=== PATIENT | male | born 1995 | race Caucasian/White ===

== ENCOUNTER 2024-01-11 21:18 | Outpatient (REF) | payer BC, SELFPAY ==
--- OUTSIDE RECORDS SUMMARY | 2024-01-11 21:21 | XMS_ITS | Encounter Summary ---
Author Organization [facility] Address [address] [place] [address] Care Team Providers Care Utilities Operator Name Role Phone None, Provider Primary Care Provider Unavailabl e Reason for Visit * Reason Comments Exposure to STI pt diagnosed 6 month s ago with chlamydia and was treated went away girl friend was diagnosed yesterday with chlamydia and pt would like testing and possible medication to treat Encounter Details Date Type Department Care Team (Late st Contact Info) Description 06/15/2019 9:00 EST Walk-In [address] [phone] Yoana Ndiaye, CAR DEALER [address] [place] [address] [address] [place], [place] [phone] Exposure to chlamydia (Primary Dx) Social History Tobacco Use Types Packs/Day Years Used Date Smoking Tobacco: Never Assessed Sex and Gender Information Value Date Recorded Sex Assigned at Not on file Gender Identity Male 06/15/2019 9:46 EST Sexual Orientation Not on file documented as of this encounter Last Filed Vital Signs Vital Sign Reading Time Taken Comments Blood Pressure 130/86 06/15/2019 0918 EST Pulse 93 06/15/2019 0918 EST Temperature 36.9 ??C (98.5 ??F) 06/15/2019 0918 EST Respiratory Rate 16 06/15/2019 0918 EST Oxygen Saturation 97% 06/15/2019 0918 EST Inhaled Oxygen Concentration - - Weight - - Height - - Body Mass Index - - documented in this encounter Patient Instructions * Patient Instructions* Yoana Ndiaye, IMPROVEMENT ENGINEER - 06/15/2019 9:00 EST Images from the original note were not included. You were treated in clinic today with 1000 mg of azithromycin, an antibiotic to treat chlamydia. Ifthe tests for gonorrhea or trich come back positive we will call you about further treatment. Ensure that your girlfriend and any other partners are notified and treated. Avoid all sexual contact for 2 weeks. Use condoms to avoid future infections. [facility] Patient Instructions Chlamydia: Care Instructions Your Care Instructions Chlamydia is a bacterial infection spread through sexual contact. It is one of the most common sexually transmitted infections (STIs). Most people who get chlamydia do not have symptoms, but they canstill infect their sex partners. If chlamydia in women is not treated, it can cause pelvic inflammatory disease (PID), a severe pelvic infection. PID can make it hard for a woman to get . Antibiotics can cure chlamydia. Both sex partners need treatment to keep from passing the infectionback and forth. Certain antibiotics should not be used in . If you were not tested for during this visit, tell your doctor if you might be . Follow-up care is a hoffman part of your treatment and safety. Be sure to make and go to all appointments, and call your doctor if you are having problems. It's also a good idea to know your test resultsand keep a list of the medicines you take. How can you care for yourself at home? ?? Chlamydia often is treated with a single dose of antibiotics in the doctor's office. If your doctor prescribed antibiotics to take at home, take them as directed. Do not stop taking them just because you feel better. You need to take the full course of antibiotics. ?? Do not have sex with anyone while you are being treated. If your treatment is a single dose of antibiotics, wait at least 7 days after you take the dose before you have sex. Even if you use a condom, you and your partner may pass the infection back and forth. ?? Make sure to tell your sex partner or partners that you have chlamydia. They should get treated,even if they do not have symptoms. ?? Your doctor may have done tests for other STIs. If so, call back in 3 or 4 days for those results. ?? Your doctor may advise you to be tested again for chlamydia in 3 or 4 months. How can you prevent chlamydia and other STIs in the future? ?? Use latex condoms every time you have sex. Use them from the beginning to the end of sexual contact. ?? Talk to your partner before you have sex. Find out if he or she has or is at risk for chlamydia or any other STI. Keep in mind that a person may be able to spread an STI even if he or she does nothave symptoms. ?? Do not have sex while you are being treated for chlamydia or any other STI. ?? Do not have sex with anyone who has symptoms of an STI, such as sores on the genitals or mouth. ?? Having one sex partner (who does not have STIs and does not have sex with anyone else) is a goodway to avoid STIs. When should you call for help? Call 911 anytime you think you may need emergency care. For example, call if: ? You have sudden, severe pain in your belly or pelvis. ??Call your doctor now or seek immediate medical care if: ? You have new belly or pelvic pain. ? You have a fever. ? You have new or increased burning or pain with urination, or you cannot urinate. ? You have pain, swelling, or tenderness in the scrotum. ??Watch closely for changes in your health, and be sure to contact your doctor if: ? You have unusual vaginal bleeding. ? You have a discharge from the vagina or penis. ? You think you may have been exposed to another STI. ? Your symptoms get worse or have not improved within 1 week after starting treatment. ? You have any new symptoms, such as sores, bumps, rashes, blisters, or warts in the genital oranal area. Where can you learn more? Go to https://www.[email or web address].net/VantageILMealth or log into your [employer] account at [email or web address] Enter X780 in the search box to learn more about Chlamydia: Care Instructions. Current as of: March 08, 2018 Content Version: 12.2 ?? [id number] [employer]. Care instructions adapted under license by [employer]. If you have questions about a medical condition or this instruction, always askyour healthcare professional. [employer] disclaims any warranty or liability for youruse of this information. documented in this encounter Progress Notes * DiannfedericoYoana, IMPROVEMENT ENGINEER - 06/15/2019 0900 EST [facility] Chief Complaint(s): Exposure to STI HPI: Chris Morales is here with complaints of exposure to chlamydia. Girlfriend was diagnosed yesterday after routine screening. Chris denies symptoms. States that both he and his girlfriend had tested positive for chlamydia 6 months ago - denies any other sexual partners for himself since then, denies knowledge of any sexual partners for his girlfriend since that time. States that they were both treated appropriately 6 months ago. States that he was tested also for gonorrhea 6 months ago and was negative. I have reviewed current problem list, current medications and allergies. ROS: Review of Systems Constitutional: Negative. Genitourinary: Negative. Skin: Negative. See HPI for details Objective: Examination: Vitals: BP 130/86 Pulse 93 Temp 36.9 ??C (98.5 ??F) Resp 16 SpO2 97% Physical Exam Constitutional: He is oriented to person, place, and time. He appears well- developed and well-nourished. HENT: Head: Normocephalic. Neurological: He is alert and oriented to person, place, and time. Skin: Skin is warm and dry. Psychiatric: He has a normal mood and affect. Nursing note and vitals reviewed. Procedures Data reviewed with patient (past results): reviewed STI testing results from 10/14 Assessment & Plan: Chris was seen today for exposure to sti. Diagnoses and all orders for this visit: Exposure to chlamydia - CHLAMYDIA/N. GONORRHOEAE AMPLIFIED RNA - azithromycin (ZITHROMAX) tablet 1,000 mg This is a 23 y.o. yr old male afeb, NAD. Treated in clinic with azithromycin for presumptive chlamydia. Pt agrees to return for further treatment if needed for any other positive tests. Declines testing for HIV or other blood borne STIs today. I printed material and reviewed home management in detail with patient for likely chlamydia, see patient instructions below. All questions are answered. Patient is advised to follow up for urgent reassessment in the emergency department for any new/worsening signs and symptoms, otherwise, follow up with PCP for symptoms that persist past current course of treatment. Patient verbalizes understanding and agreement with this plan of care. documented in this encounter Plan of Treatment Scheduled Orders Name Type Priority Associated Diagnoses Orde r Schedule CHLAMYDIA/N. GONORRHOEAE AMPLIFIED RNA Microbiology Routine Exposure to chlamydia Ordered: 06/15/2019 documented as of this encounter Visit Diagnoses Diagnosis Exposure to chlamydia- Primary Contact with or exposure to venereal diseases documented in this encounter Administered Medications Inactive Administered Medications - up to 3 most recent administrations Medication Order MAR Action Action Date Dose Rate Site azithromycin (ZITHROMAX) tablet 1,000 mg 1,000 mg, oral, NOW X1, 1 dose, On Luh 06/15/19 at 1000, Routine Given 06/15/2019 9:39 EST 1,000 mg documented in this encounter Historical Medications * This list may reflect changes made after this encounter. Medication Sig Dispensed Refills Start Date End Date dextromethorphan HBr (VICKS DAYQUIL COUGH ORAL) Take by mouth. added in this encounter Care Teams Utilities Operator Relationship Specialty Start Date End Date None, Provider PCP - General 06/15/19 documented as of this encounter
--- OUTSIDE RECORDS SUMMARY | 2024-01-11 21:21 | XMS_ITS | Encounter Summary ---
Author Organization [facility] Address [address] [place] [address] Care Team Providers Care Green House Manager Name Role Phone Unavailable Primary Care Provider Unavailabl e Encounter Details Date Type Department Care Team (Late st Contact Info) Description 09/29/2018 Historical Results Only [facility] - Main [place] [address] [place], [place] [phone] Carli Nazario NP [address] [place], [place] [phone] Social History Tobacco Use Types Packs/Day Years Used Date Smoking Tobacco: Never Assessed Sex and Gender Information Value Date Recorded Sex Assigned at Not on file Gender Identity Male 06/15/2019 9:46 EST Sexual Orientation Not on file documented as of this encounter Plan of Treatment Not on file documented as of this encounter Procedures Procedure Name Priority Date/Time Associated Diagnosis Comments GC/CHLAMYDIA/TRICHO MONAS URINE - [facility] Routine 09/29/2018 18:11 EDT documented in this encounter Results * GC/CHLAMYDIA/TRICHOMONAS URINE - [facility] (09/29/2018 18:11 EDT) CHLAMYDIA PCR - [facility] DETECTED 09/30/2018 14:04 EDT [facility] Comment: CHLAMYDIA TRACHOMATIS DNA detected by nucleic acid amplification with real-time PCR. Result called to CASTILLO HERNANDEZ AT [facility] 09/30/18 1404: Result called by EDGARDO GONORRHEA PCR - [facility] NOT DETECTED 09/30/2018 14:04 EDT [facility] TRICH[facility]ONAS VAGINALIS PCR UR - [facility] NOT DETECTED 09/30/2018 13:09 EDT [facility] 09/29/2018 18:1 1 EDT 09/30/2018 11:44 EDT Carli Nazario REROLLING MACHINE OPERATOR CHEMISTRY & BLOOD GAS ORDERABLES [facility] documented in this encounter Visit Diagnoses Not on filedocumented in this encounter
--- OUTSIDE RECORDS SUMMARY | 2024-01-11 21:21 | XMS_ITS | Referral Summary ---
Author Organization [facility] Address [address] [place] [address] Care Team Providers Care Erp Pm Name Role Phone None, Provider Primary Care Provider Unavailabl e Allergies No known active allergies Medications Medication Sig Dispensed Refills Start Date End Date Status dextromethorphan HBr (VICKS DAYQUIL COUGH ORAL) Take by mouth. Active Social History Tobacco Use Types Packs/Day Years Used Date Smoking Tobacco: Never Assessed Interpersonal Safety Answer Date Record ed Physically Hurt Never 01/28/2020 Verbally Threaten Not on file 01/28/2020 Sex and Gender Information Value Date Recorded Sex Assigned at Not on file Gender Identity Male 06/15/2019 9:46 EST Sexual Orientation Not on file Last Filed Vital Signs Vital Sign Reading Time Taken Comments Blood Pressure 130/86 06/15/2019 0918 EST Pulse 93 06/15/2019 0918 EST Temperature 36.9 ??C (98.5 ??F) 06/15/2019 0918 EST Respiratory Rate 16 06/15/2019 0918 EST Oxygen Saturation 97% 06/15/2019 0918 EST Inhaled Oxygen Concentration - - Weight - - Height - - Body Mass Index - - Plan [place] [address] Chris Morales Personal/Famil y Self [address] [place] [address] [place] [address] Chris Morales Personal/Famil y Self [address] [place] [address] [place] [address] Carm[place], Chris Personal/Famil y Self [address] [place] [address] [place] [address] Carmen, Chris Personal/Famil y Self [address] [place] [address] [place] [address] Carmen, Chris Personal/Famil y Self [address] [place] [address] [place] [address] [place], Chris Personal/Famil y Self [address] [place] [address] [place] [address] Carm[place], Chris Personal/Famil y Self [address] [place] [address] [place] [address] Care Teams Erp Pm Relationship Specialty Start Date End Date None, Provider PCP - General 06/15/19
--- OUTSIDE RECORDS SUMMARY | 2024-01-11 21:21 | XMS_ITS | Clinical Summary ---
Author Organization [facility] Address [address] [place] [address] Care Team Providers Care Power Generation Equipment Repairer Name Role Phone None, Provider Primary Care [...] Mass Index - - Plan of Treatment Health Maintenance Due Date Last Done Comments Hepatitis C Screen 1995 Hepatitis B Vaccine (1 of 3 - 19+ 3-dose series) 10/13 COVID-19 Vaccine (2022-24 season) 2023 Care Teams Power Generation Equipment Repairer Relationship Specialty Start Date End Date None, Provider PCP - General 06/15/19
--- OUTSIDE RECORDS SUMMARY | 2024-01-11 21:21 | XMS_ITS ---
Author Organization Unknown Address [address] [place] [phone] Phone Care Team Providers Care Director Of Maintenance Name Role Phone LEIF ALCANTARA Registered Nurse Unavailab diane Solomon Attending Unavailable LAURYN Jackson Primary Unavailable UNLISTED PROVIDER - REQUESTED Xhandoff Un available Social History Type Status Start Date End Date Code Code Syst em Smoking History Never smoker (Never Smoked) 700186455 SNOMED CT Sex Male Vital Signs Vital Sign Value Unit Chilton Value Chilton Unit Date/Time Recent/Initial? Code Code System Body Mass Index 32.10 kg/m2 06/03/2021 00:46 Initial 12349 -5 [facility] Systolic Blood Pressure 137 mm[Hg] 06/03/2021 00:46 Initial 8480- 6 LOINC Diastolic Blood Pressure 102 mm[Hg] 06/03/2021 00:46 Initial 8462- 4 LOINC Body Surface Area 2.43 m2 06/03/2021 00:46 Initial 3140- 1 LOINC Height 187.960 0 cm 74.00 in 06/03/2021 00:46 Initial 8302- 2 LOINC O2 Saturation 97 % 2020 00:46 Initial 03762 -5 INC Pulse 93.0 /min 06/03/2021 00:46 Initial 8867- 4 LOINC Respiration 20 /min 06/03/20 00:46 Initial 9279- 1 LOINC Temperature 36.0 Hali 96.8 F 06/03/20 00:46 Initial 8310- 5 [facility] Weight 113.40 kg 250.00 lbs 06/03/2021 00:46 Initial 71858 -7 [facility] Medications Medication Start Date End Date Route Frequency Dose Code Code System Medication Instructions Home Meds Ibuprofen 800MG Oral Tablet 06/03/2021 Unknown ORAL EVERY 8 HOURS 1 TABLET RxNorm TAKE 1 TABLET ORAL EVERY 8 HOURS for 3 days then as needed Cyclobenzaprine 10MG Oral Tablet 06/03/2021 Unknown ORAL NEEDED EVERY 6 HOURS 1 TABLET 106420 RxNorm TAKE 1 TABLET ORAL NEEDED EVERY 6 HOURS FOR Pain/spasm Lidocaine 5% Topical application Patch, Extended Release 06/03/2021 Unknown TOPICAL APPLICATIO N DAILY 1 8495138 RxNorm 1-2 PATCHES TOPICAL APPLICATION DAILY, 12 hours on and 12 hours off per day Assessment You had the following problems:TORTICOLLIS Hospital Discharge Instructions Should you have any questions prior to discharge, please contact a member of your healthcare team. If you have left the hospital and have any questions, please contact your primary care physician. Reason For Referral No Data Found Procedures Procedure Name Date Status Code Code Deja jackosn APPENDECTOMY completed [id number] SNOMEDCT Problems Problem Start Date Resolved Date Status Code Code System TORTICOLLIS active 17014293 SNOMED-C T Allergies and Adverse Reactions Allergy Substance Reaction Severity Start Date Concern Status Co de Code System No Known Allergies Moderate Active 709634224 SN OMED-CT Plan of Treatment OUTPATIENT PLAN: Discharge Medications: Discharge Medications Medication Dosage Route Frequency Prescribing MD Special Instructions Lidocaine 5% Topical application Patch, Extended Release TOPICAL APPLICATION DAILY JENNIFER Solomon 1-2 PATCHES TOPICAL APPLICATION DAILY, 12 hours on and 12 hours off per day Cyclobenzaprine 10MG Oral Tablet 1 TABLET ORAL NEEDED EVERY 6 HOURS JENNIFER Solomon TAKE 1 TABLET ORAL NEEDED EVERY 6 HOURS FOR Pain/spasm Ibuprofen 800MG Oral Tablet 1 TABLET ORAL EVERY 8 HOURS JENNIFER Solomon TAKE 1 TABLET ORAL EVERY 8 HOURS for 3 days then as needed Follow up: Please see your doctor in 5-7 days if not improving. Other Instructions: Please take 800 mg of ibuprofen 3 times a day for the next 2 to 3 days then as needed. Heat, light stretches, massage as recommended. Encounters Encounter Diagnosis Start Date Code Code Sys tem Torticollis 06/03/2021 SNOMED-CT Personal Care Team Section Performer Name Performer Role Active Date Inactive Da bryant
--- OUTSIDE RECORDS SUMMARY | 2024-01-11 21:21 | XMS_ITS | Encounter Summary ---
Author Organization Health system Address [address] [place] [address] Care Team Providers Care Merchant Banker Name Role Phone None, Provider Primary Care Provider Unavailabl e Reason for Visit * Reason Onset Date Comments Results 06/15/2019 Encounter Details Date Type Department Care Team (Late st Contact Info) Description 06/15/2019 Telephone [facility] [place] [facility] [place] [address] [place], [place] [phone] Yoana Ndiaye NP [address] [facility] [address] [place] [address] Results Social History Tobacco Use Types Packs/Day Years Used Date Smoking Tobacco: Never Assessed Sex and Gender Information Value Date Recorded Sex Assigned at Not on file Gender Identity Male 06/15/2019 9:46 EST Sexual Orientation Not on file documented as of this encounter Miscellaneous Notes * Telephone Encounter - Alonzo Ruth RN - 06/15/2019 1510 EST Patient notified of lab results on 06/15/19 at 3:11pm. ALONZO RUTH RN 06/15/19 15:11 * Telephone Encounter - Shanel Crain - 06/15/2019 1413 EST Lab called with positive results for chlamydia Shanel Crain 06/15/19 14:14 documented in this encounter Plan of Treatment Not on file documented as of this encounter Visit Diagnoses Not on filedocumented in this encounter Care Teams Merchant Banker Relationship Specialty Start Date End Date None, Provider PCP - General 06/15/19 documented as of this encounter
--- OUTSIDE RECORDS SUMMARY | 2024-01-11 21:21 | XMS_ITS | Encounter Summary ---
Author Organization [facility] Address [address] [place] [address] Care Team Providers Care Nursing Education Specialist Name Role Phone None, Provider Primary Care Provider Unavailabl e Encounter Details Date Type Department Care Team (Late st Contact Info) Description 06/15/2019 Results Only [facility] [place] [address] [place], [place] [address] Yoana Ndiaye NP [address] [facility] [address] [place] [address] Social History Tobacco Use Types Packs/Day Years [...] Associated Diagnosis Comments GC/CHLAMYDIA/TRICHO MONAS URINE - [facility] Routine 06/15/2019 8:31 EST documented in this encounter Results * GC/CHLAMYDIA/TRICHOMONAS URINE - [facility] (06/15/2019 8:31 EST) CHLAMYDIA PCR - [facility] DETECTED 06/15/2019 14:11 [facility] Comment: CHLAMYDIA TRACHOMATIS DNA detected by nucleic acid amplification with real-time PCR. Result called to SANJANA STARR[facility] 06/15/19 1411: Result called by KIM GONORRHEA PCR - [facility] NOT DETECTED 06/15/2019 14:11 [facility] SOURCE URINE 06/15/2019 19:41 [facility] TRICHOMONAS VAGINALIS PCR UR - [facility] NOT DETECTED 06/15/2019 14:11 [facility] 06/15/2019 8:31 EST 06/15/2019 11:08 EST Yoana Ndiaye NP CHEMISTRY & BLOOD GA S ORDERABLES [facility] documented in this encounter Visit Diagnoses Not on filedocumented in this encounter Care Teams Nursing Education Specialist Relationship Specialty Start Date End Date None, Provider PCP - General 06/15/19 documented as of this encounter
== END 2024-01-11 21:19 | disposition home or self-care (01) ==
LOC: LBN 21:18
PROVIDERS: PCP Internal Medicine; Visit Provider Nurse Practitioner Family
DX: N30.01 Acute cystitis with hematuria (principal)
CPT/HCPCS: 87086